=== PATIENT | female | born 1945 | race Caucasian/White ===

== ENCOUNTER 2020-10-13 08:31 | Inpatient (IN) ==
[2020-10-13] MEDS: Latanoprost 2.5 ML BOTTLE RIGHT EYE SCH (20:05)
[2020-10-13] MEDS: dexAMETHasone 4 MG TABLET PO SCH (20:05)
[2020-10-13] MEDS ORDERED: OLANZapine 10 MG TAB.RAPDIS PO ONE (21:00)
[2020-10-13] MEDS ORDERED: OLANZapine 5 MG TAB.RAPDIS PO SCH (21:00)
[2020-10-14 06:31] LABS: Basophils % 0.1 %; Eosinophils % 0.1 %; Hematocrit 31.1 % (35.3-44.9); Hemoglobin 9.9 g/dL (11.5-15.4); Immature Granulocytes % 0.6 % (0-4); Lymphocytes % 5.4 %; Mean Corpuscular HGB Conc 31.8 g/dL (31.6-35.5); Mean Corpuscular Hemoglobin 30.7 pg (28.0-33.3); Mean Corpuscular Volume 96.3 fL (83.0-100.0); Monocytes # 1.3 K/mcL (0.0-1.3); Monocytes % 7.1 %; Platelet Count 276 K/mcL (140-400); Red Blood Count 3.23 M/mcL (3.82-4.97); Red Cell Distribution Width 17.8 % (11.5-14.5); Segmented Neutrophils % 86.7 %; White Blood Count 17.8 K/mcL (4.3-11.1)
[2020-10-14 06:38] LABS: Neutrophils # 15.4 K/mcL (1.6-8.9)
[2020-10-14 06:52] LABS: BUN/Creatinine Ratio 33 (6-26); Blood Urea Nitrogen 25 mg/dL (8-23); Calcium 8.4 mg/dL (8.6-10.3); Carbon Dioxide 32 mEq/L (23-29); Chloride 103 mEq/L (98-107); Glucose 98 mg/dL (70-105); Osmolality,Calculated 296 (280-300); Potassium 3.8 mEq/L (3.5-5.1); Sodium 141 mEq/L (136-145); eGFR For African Americans > 60 (> 60); eGFR For Non-African Americans > 60 (> 60)
[2020-10-14] MEDS: *HR* Enoxaparin 40 MG/0.4 ML SYRINGE SQ SCH (06:59)
[2020-10-14] MEDS ORDERED: Cyanocobalamin (B-12) 1,000 MCG TABLET PO SCH (09:00)
[2020-10-14] MEDS: dexAMETHasone 4 MG TABLET PO SCH ×2 (09:13→22:22)
[2020-10-14] MEDS: amLODIPine 5 MG TABLET PO SCH (09:14)
[2020-10-14 12:04] LABS: % Iron Saturation 22 % (15-50); Iron 42 mcg/dL (50-170); Transferrin 135 mg/dL (203-362)
[2020-10-14 12:05] LABS: Prealbumin 17.6 mg/dL (17.0-34.0)
[2020-10-14 12:30] LABS: Folate 3.1 ng/mL (3.0-16.0)
[2020-10-14] MEDS: Acetaminophen 325 MG TABLET PO PRN (12:47)
[2020-10-14] MEDS: OLANZapine 5 MG TAB.RAPDIS PO SCH (22:23)
[2020-10-14] MEDS: Latanoprost 2.5 ML BOTTLE RIGHT EYE SCH (22:23)
[2020-10-15] MEDS: *HR* Enoxaparin 40 MG/0.4 ML SYRINGE SQ SCH (05:44)
[2020-10-15] MEDS: amLODIPine 5 MG TABLET PO SCH (08:30)
[2020-10-15] MEDS: dexAMETHasone 4 MG TABLET PO SCH ×2 (08:30→20:01)
[2020-10-15] MEDS: Acetaminophen 325 MG TABLET PO PRN (20:02)
[2020-10-15] MEDS: Latanoprost 2.5 ML BOTTLE RIGHT EYE SCH (20:02)
[2020-10-15] MEDS: OLANZapine 5 MG TAB.RAPDIS PO SCH (20:02)
[2020-10-16 07:16] LABS: Hematocrit 30.8 % (35.3-44.9); Hemoglobin 9.4 g/dL (11.5-15.4); Mean Corpuscular HGB Conc 30.5 g/dL (31.6-35.5); Mean Corpuscular Hemoglobin 29.7 pg (28.0-33.3); Mean Corpuscular Volume 97.5 fL (83.0-100.0); Mean Platelet Volume 12.4 fL (9.4-12.4); Platelet Count 267 K/mcL (140-400); Red Blood Count 3.16 M/mcL (3.82-4.97); Red Cell Distribution Width 17.8 % (11.5-14.5); White Blood Count 16.9 K/mcL (4.3-11.1)
[2020-10-16 07:34] LABS: Alanine Aminotransferase 39 Units/L (7-52); Albumin 2.4 g/dL (3.5-5.7); Alkaline Phosphatase 268 Units/L (34-104); Aspartate Amino Transferase 21 Units/L (13-39); BUN/Creatinine Ratio 42 (6-26); Bilirubin,Total 0.4 mg/dL (0.3-1.0); Blood Urea Nitrogen 32 mg/dL (8-23); Calcium 8.3 mg/dL (8.6-10.3); Carbon Dioxide 28 mEq/L (23-29); Chloride 103 mEq/L (98-107); Globulin 2.5 g/dL (2.4-3.5); Glucose 71 mg/dL (70-105); Magnesium 1.8 mg/dL (1.6-2.6); Osmolality,Calculated 291 (280-300); Sodium 138 mEq/L (136-145); Total Protein 4.9 g/dL (6.4-8.9); eGFR For African Americans > 60 (> 60); eGFR For Non-African Americans > 60 (> 60)
[2020-10-16] MEDS: amLODIPine 5 MG TABLET PO SCH (08:36)
[2020-10-16] MEDS: dexAMETHasone 4 MG TABLET PO SCH (08:37)
[2020-10-16] MEDS: *HR* Enoxaparin 40 MG/0.4 ML SYRINGE SQ SCH (08:38)
[2020-10-16] MEDS: Latanoprost 2.5 ML BOTTLE RIGHT EYE SCH (22:36)
[2020-10-16] MEDS: OLANZapine 5 MG TAB.RAPDIS PO SCH (22:37)
[2020-10-17] MEDS: *HR* Enoxaparin 40 MG/0.4 ML SYRINGE SQ SCH (05:34)
[2020-10-17] MEDS: dexAMETHasone 4 MG TABLET PO SCH ×2 (07:40→08:09)
[2020-10-17] MEDS: amLODIPine 5 MG TABLET PO SCH (08:09)
[2020-10-17] MEDS: OLANZapine 5 MG TAB.RAPDIS PO SCH (20:54)
[2020-10-17] MEDS: Latanoprost 2.5 ML BOTTLE RIGHT EYE SCH (20:55)
[2020-10-18] MEDS: *HR* Enoxaparin 40 MG/0.4 ML SYRINGE SQ SCH (05:37)
[2020-10-18] MEDS: Acetaminophen 325 MG TABLET PO PRN ×2 (08:50→22:08)
[2020-10-18] MEDS: dexAMETHasone 4 MG TABLET PO SCH (08:50)
[2020-10-18] MEDS: amLODIPine 5 MG TABLET PO SCH (08:51)
[2020-10-18 17:05] LABS: Bilirubin,Urine Negative (Negative); Blood,Urine Negative (Negative); Clarity,Urine Clear (Clear); Color,Urine Yellow (Yellow); Glucose,Urine (UA) Normal (Normal); Ketones,Urine Negative (Negative); Leukocyte Esterase,Urine Trace (Negative); Nitrite,Urine Negative (Negative); Protein,Urine Negative (Neg-Trace); Urobilinogen,Urine Normal (Normal)
[2020-10-18 17:15] LABS: Bacteria,Urine Few per hpf (None-Few); Squamous Epithelial Cell,Urine Few per hpf (None-Few); WBC,Urine 0-3 per hpf (0-3)
[2020-10-18] MEDS: Latanoprost 2.5 ML BOTTLE RIGHT EYE SCH (22:09)
[2020-10-18] MEDS: OLANZapine 5 MG TAB.RAPDIS PO SCH (22:09)
[2020-10-19] MEDS: *HR* Enoxaparin 40 MG/0.4 ML SYRINGE SQ SCH (05:52)
[2020-10-19] MEDS: Acetaminophen 325 MG TABLET PO PRN ×2 (05:52→21:43)
[2020-10-19] MEDS: dexAMETHasone 4 MG TABLET PO SCH (10:07)
[2020-10-19] MEDS: amLODIPine 5 MG TABLET PO SCH (10:07)
[2020-10-19] MEDS: OLANZapine 5 MG TAB.RAPDIS PO SCH (21:43)
[2020-10-19] MEDS: Latanoprost 2.5 ML BOTTLE RIGHT EYE SCH (21:45)
[2020-10-20] MEDS: *HR* Enoxaparin 40 MG/0.4 ML SYRINGE SQ SCH (05:26)
[2020-10-20] MEDS: Acetaminophen 325 MG TABLET PO PRN ×2 (05:27→11:57)
[2020-10-20] MEDS: dexAMETHasone 4 MG TABLET PO SCH (11:09)
[2020-10-20] MEDS: amLODIPine 5 MG TABLET PO SCH (11:09)
[2020-10-20] MEDS: OLANZapine 5 MG TAB.RAPDIS PO SCH (21:58)
[2020-10-20] MEDS: Latanoprost 2.5 ML BOTTLE RIGHT EYE SCH (21:59)
[2020-10-21] MEDS: *HR* Enoxaparin 40 MG/0.4 ML SYRINGE SQ SCH (06:05)
[2020-10-21] MEDS: Acetaminophen 325 MG TABLET PO PRN ×2 (09:14→19:54)
[2020-10-21] MEDS: dexAMETHasone 4 MG TABLET PO SCH (09:14)
[2020-10-21] MEDS: amLODIPine 5 MG TABLET PO SCH (09:15)
[2020-10-21] MEDS: OLANZapine 5 MG TAB.RAPDIS PO SCH (19:51)
[2020-10-21] MEDS: Latanoprost 2.5 ML BOTTLE RIGHT EYE SCH (19:52)
[2020-10-22] MEDS: *HR* Enoxaparin 40 MG/0.4 ML SYRINGE SQ SCH (05:26)
[2020-10-22 05:56] LABS: Basophils % 0.1 %; Eosinophils % 0.1 %; Hematocrit 30.1 % (35.3-44.9); Hemoglobin 9.5 g/dL (11.5-15.4); Immature Granulocytes % 0.5 % (0-4); Lymphocytes # 2.1 K/mcL (0.6-4.6); Lymphocytes % 16.3 %; Mean Corpuscular HGB Conc 31.6 g/dL (31.6-35.5); Mean Corpuscular Hemoglobin 30.7 pg (28.0-33.3); Mean Corpuscular Volume 97.4 fL (83.0-100.0); Mean Platelet Volume 11.8 fL (9.4-12.4); Monocytes # 0.9 K/mcL (0.0-1.3); Monocytes % 6.9 %; Neutrophils # 9.9 K/mcL (1.6-8.9); Platelet Count 227 K/mcL (140-400); Red Blood Count 3.09 M/mcL (3.82-4.97); Red Cell Distribution Width 17.9 % (11.5-14.5); Segmented Neutrophils % 76.1 %
[2020-10-22 06:14] LABS: BUN/Creatinine Ratio 32 (6-26); Blood Urea Nitrogen 24 mg/dL (8-23); Calcium 8.4 mg/dL (8.6-10.3); Carbon Dioxide 30 mEq/L (23-29); Chloride 105 mEq/L (98-107); Glucose 70 mg/dL (70-105); Osmolality,Calculated 294 (280-300); Potassium 3.9 mEq/L (3.5-5.1); Sodium 141 mEq/L (136-145); eGFR For African Americans > 60 (> 60); eGFR For Non-African Americans > 60 (> 60)
[2020-10-22] MEDS: amLODIPine 5 MG TABLET PO SCH (09:50)
[2020-10-22] MEDS: Acetaminophen 325 MG TABLET PO PRN ×2 (09:50→20:03)
[2020-10-22] MEDS: OLANZapine 5 MG TAB.RAPDIS PO SCH (20:03)
[2020-10-22] MEDS: Latanoprost 2.5 ML BOTTLE RIGHT EYE SCH (20:04)
[2020-10-23] MEDS: *HR* Enoxaparin 40 MG/0.4 ML SYRINGE SQ SCH (05:34)
[2020-10-23] MEDS: amLODIPine 5 MG TABLET PO SCH (08:10)
[2020-10-23] MEDS: Acetaminophen 325 MG TABLET PO PRN ×2 (08:11→20:49)
[2020-10-23] MEDS: OLANZapine 5 MG TAB.RAPDIS PO SCH (20:50)
[2020-10-23] MEDS: Latanoprost 2.5 ML BOTTLE RIGHT EYE SCH (20:51)
[2020-10-24] MEDS: *HR* Enoxaparin 40 MG/0.4 ML SYRINGE SQ SCH (05:18)
[2020-10-24] MEDS: amLODIPine 5 MG TABLET PO SCH (08:44)
[2020-10-24] MEDS: Acetaminophen 325 MG TABLET PO PRN (08:44)
[2020-10-24] MEDS: Latanoprost 2.5 ML BOTTLE RIGHT EYE SCH (21:03)
[2020-10-24] MEDS: OLANZapine 5 MG TAB.RAPDIS PO SCH (21:03)
[2020-10-25] MEDS: *HR* Enoxaparin 40 MG/0.4 ML SYRINGE SQ SCH (06:51)
[2020-10-25 07:15] VITALS: BP 116/77
[2020-10-25] MEDS: Acetaminophen 325 MG TABLET PO PRN (08:54)
[2020-10-25] MEDS: amLODIPine 5 MG TABLET PO SCH (08:54)
== END 2020-10-25 12:25 | disposition home health service (06) | DRG 560 ==
LOC: INPGRE 14:13
PROVIDERS: ADMIT Family Medicine; ATTEND Family Medicine